=== PATIENT | female | born 1980 | race African-American/Black ===

== ENCOUNTER 2020-12-01 12:23 | Emergency (ER) | payer OTHER, SELFPAY ==
[2020-12-01 12:36] VITALS: BP 123/66; PULSE 74; RESP 12; TEMP 37.2; O2SAT 100
--- NOTE | 2020-12-01 12:45 | ED.GENADULT ---
HPI - General Adult General Chief complaint: Skin/Abscess/Foreign Body Stated complaint: rash Time Seen by Provider: 12/01/20 12:45 Source: patient and RN notes reviewed Mode of arrival: ambulatory Limitations: no limitations History of Present Illness HPI narrative: 40-year-old -Chinese female presents with complaints of raised, itching, and red rash throughout body for 1 day. Yuly reports awaken on 11/30/2020 with rash, started on arms spread to anterior trunk and legs throughout the night. No treatment. Denies new changes in personal hygiene products or laundry detergent. The day before ate [place] for breakfast instead of [place]. No new medications. No swelling, burning, bleeding, or drainage. Denies fever, headaches, weakness, fatigue, myalgia, facial swelling, or tongue swelling. Denies chest pain or dyspnea. Denies nausea, vomiting, and abdominal pain. Tolerating po intake well. LMP 4 weeks ago. Remains active. The patient reports she have not been diagnosed with COVID-19. The patient reports she is not waiting for the results of a COVID-19 lab test. The patient reports she do not have a new or worsening cough. The patient reports she do not have any rhinorrhea, congestion, sore throat, loss of taste or smell, and diarrhea. Denies recent traveling. Denies concerns for COVID-19 or exposures. At this time, patient is not suspected of having COVID-19. Some parts of this dictation were generated by voice recognition software and may contain typographical and/or grammatical inaccuracies. Related Data Allergies Allergy/AdvReac Type Severity Reaction Status Date / Time No Known Allergies Allergy Verified 12/04/20 14:36 Review of Systems Review of Systems: Narrative: CONSTITUTIONAL: Denies fever, chills, sweats. EYES: Denies visual changes, redness, discharge. ENT: Denies rhinorrhea, congestion, sore throat, otalgia. CARDIOVASCULAR: Denies chest pain, palpitations, edema. RESPIRATORY: Denies dyspnea, wheezing, cough. GASTROINTESTINAL: Denies abdominal pain, nausea, vomiting, diarrhea. SKIN: Complains of raised, itching, and red rash throughout body. Denies drainage. MUSCULOSKELETAL: Denies acute back pain, joint pain, or myalgia. NEUROLOGIC: Denies numbness or focal weakness. PSYCHIATRIC: Denies anxiety or depression. All other systems reviewed & are unremarkable except as noted in HPI and below. PMFSH Past Medical History Medical History Asthma Surgical History Surgical History History of laparotomy Family History Family History Father Hypertension Heart disease Mother Hypertension Asthma Diabetes mellitus Social History Social History Smoking status: Never smoker Tobacco type: cigarettes Second hand tobacco smoke exposure: No Alcohol intake: current Substance use: never Substance use type: does not use Gender identity (if verbalized by the patient): Female Comments At time of signature, agree with nurse past medical, surgical, social, and family history. There is relevant patient's history pertinent to the presenting complaint, no relevant family history pertinent to the presenting complaint. Exam Narrative: Exam Narrative: GENERAL: This is a well-nourished, well-developed patient, in no apparent distress. Talking in full sentences without deficit and ambulate with steady gait without dyspnea. HEAD: Normocephalic, atraumatic. EYES: PERRL. Sclera clear/white. Vision is grossly intact. EARS: External ears normal, auditory canals clear and without drainage, TMs normal without perforation. Hearing grossly intact. NOSE: External nose normal with no obvious nasal discharge, nares with moderate erythema and enlarge turbinates, no rhinorrhea. THROAT: Mucous membranes
== END 2020-12-01 13:11 | disposition home or self-care (01) ==
PROVIDERS: Emergency Provider Nurse Practitioner Family
DX: L25.9 Unspecified contact dermatitis, unspecified cause (principal); J45.909 Unspecified asthma, uncomplicated
CPT/HCPCS: 99213; G0463

== ENCOUNTER 2020-12-04 14:25 | Emergency (ER) | payer OTHER, SELFPAY ==
[2020-12-04 14:26] VITALS: BP 117/78; PULSE 80; RESP 18; TEMP 36.8; O2SAT 100
[2020-12-04 14:32] VITALS: BP 117/78; PULSE 80; RESP 16; O2SAT 100
--- NOTE | 2020-12-04 14:51 | PC.NURSE ---
Discussed with physician about the [place] Suicide Scale resulting in a moderate risk. Discussed with Dr. Rob, we will not be performing suicide precautions with this patient.
[2020-12-04] MEDS: predniSONE 20 MG TABLET 60 MG PO (15:41)
[2020-12-04 15:54] LABS: Anion Gap 5 mmol/L (8-16); Blood Urea Nitrogen 16 mg/dL (7-17); Calcium 9.4 mg/dL (8.4-10.2); Carbon Dioxide 30 mmol/L (22-30); Chloride 104 mmol/L (98-107); Estimated CRCL calculation 80 ml/min; Estimated Glomerular Filt Rate > 60; Glucose 91 mg/dL (65-105); INR 0.9; Potassium 3.4 mmol/L (3.4-5.0); Prothrombin Time 12.5 Seconds (11.1-14.7); Sodium 139 mmol/L (137-145)
--- NOTE | 2020-12-04 16:10 | PC.NURSE ---
Called Lab and spoke with Callum Escalante to add on a CBCD at 1611.
[2020-12-04 16:11] LABS: Beta HCG Quantitative < 2.39 mIU/ML
[2020-12-04 16:15] LABS: Basophils Absolute Auto 0.1 K/mm3 (0.0-0.1); Basophils Percent Auto 0.6 % (0.2-1.2); Eosinophils Absolute Auto 0.2 K/mm3 (0-0.3); Eosinophils Percent Auto 2.1 % (0-4.4); Hematocrit 41.3 % (37.0-47.0); Hemoglobin 13.5 g/dL (12.0-15.0); Immature Granulocyte Absolute 0.02 K/mm3 (0.00-0.031); Immature Granulocyte Percent A 0.2 % (0-0.5); Lymphocytes Absolute Auto 3.12 K/mm3 (0.9-3.2); Lymphocytes Percent Auto 31.6 % (18.3-44.2); Mean Corpuscular HGB Conc 32.7 g/dl (32-36); Mean Corpuscular Hemoglobin 32.1 pg (26-34); Mean Corpuscular Volume 98.1 fl (80-100); Mean Platelet Volume 9.9 fl (7.4-10.4); Monocytes Absolute Auto 0.6 K/mm3 (0.1-0.6); Monocytes Percent Auto 6.5 % (2.6-8.5); Neutrophils Absolute Auto 5.8 K/mm3 (1.3-6.7); Platelet Count Result 329 k/mm3 (150-375); Red Blood Count 4.21 M/mm3 (4.2-5.4); Red Cell Distribution Width 12.2 % (11.5-14.5); White Blood Count 9.9 K/mm3 (4.5-10.0)
--- NOTE | 2020-12-04 17:04 | ED.SKABFB ---
HPI - Skin/Abscess/Foreign Bdy General Chief complaint: Skin/Abscess/Foreign Body Stated complaint: generalized rash with itching Time Seen by Provider: 12/04/20 15:24 Source: patient Mode of arrival: ambulatory Limitations: no limitations History of Present Illness HPI narrative: 39-year-old with no major medical problems here with complaints of diffuse rash for past few days. She states that she was seen at urgent care and was given Medrol Dosepak she still continues to have itching and rash seems to be spreading. She denies any new medication or antibiotic. No new detergent use. complaint: rash Onset (ago): week(s) (1) Location: generalized Quality: pruritic Pain Consistency: constant Relieving factors: none Exacerbating factors: none Context: none Associated symptoms: denies other symptoms Related Data Allergies Allergy/AdvReac Type Severity Reaction Status Date / Time No Known Allergies Allergy Verified 12/04/20 14:36 Review of Systems Review of Systems: All systems reviewed & are unremarkable except as noted in HPI and below Constitutional: Constitutional: Reports no additional constitutional complaints Eyes: Eyes: Reports no additional eye complaints ENT: Reports system reviewed and no additional complaints, except as documented Cardiovascular: Cardiovascular: Reports no additional cardiovascular complaints Respiratory: Respiratory: Reports no additional respiratory complaints Gastrointestinal: Gastrointestinal: Reports no additional gastrointestinal complaints Musculoskeletal: Musculoskeletal: Reports no additional musculoskeletal complaints Integumentary/Breasts: Skin/Breast: Reports as per HPI Neurologic: Reports system reviewed and no additional complaints, except as documented Psychiatric: Psychiatric: Reports no additional psychiatric complaints PMFSH Past Medical History Medical History Asthma Surgical History Surgical History History of laparotomy Family History Family History Father Hypertension Heart disease Mother Hypertension Asthma Diabetes mellitus Social History Social History Smoking status: Never smoker Tobacco type: cigarettes Second hand tobacco smoke exposure: No Alcohol intake: current Substance use: never Substance use type: does not use Gender identity (if verbalized by the patient): Female Exam Narrative: Exam Narrative: GENERAL: Well-appearing, well-nourished, and in no acute distress. HEAD: Normocephalic, atraumatic. EYES: PERRLA and EOMI.. NECK: Supple. CHEST: Clear to auscultation. No respiratory distress. HEART: Regular rate and rhythm. No murmur heard. Normal peripheral pulses. ABDOMEN: Soft, nontender, nondistended, normal active bowel sounds. EXTREMITIES: Normal range of motion. No edema. SKIN: Warm, dry, diffuse erythematous rash both upper and lower extremity NEURO: No focal deficits. Alert and oriented x3. PSYCH: Normal mood and affect. Course Course Emergency Course: I discussed lab work with the patient. I have given her a dose of steroids we will start her on high-dose of prednisone and Atarax for itching advised her to follow-up with a catcher filter tip if symptoms do not improve. Vital Signs Vital signs: Vital Signs Temperature 36.8 C 12/04/20 14:26 Pulse Rate 80 12/04/20 14:26 Respiratory Rate 18 12/04/20 14:26 Blood Pressure 117/78 12/04/20 14:26 Pulse Oximetry 100 12/04/20 14:26 Temperature 36.8 C 12/04/20 14:26 Pulse Rate 80 12/04/20 14:32 Respiratory Rate 16 12/04/20 14:32 Blood Pressure 117/78 12/04/20 14:32 Pulse Oximetry 100 12/04/20 14:32 MDM - Skin/Abscess/Foreign Bdy Lab Data Result diagrams: 12/04/20 15:34 12/04/20 15:38 [place]
[2020-12-04 17:38] VITALS: BP 124/78; PULSE 74; RESP 15; O2SAT 100
== END 2020-12-04 17:39 | disposition home or self-care (01) ==
PROVIDERS: Emergency Provider Family Medicine
DX: L25.9 Unspecified contact dermatitis, unspecified cause (principal); J45.909 Unspecified asthma, uncomplicated
CPT/HCPCS: 36415; 80048; 84702; 85025; 85610; 99283; J7512